=== PATIENT | female | born 1990 | race Caucasian/White ===

== ENCOUNTER 2016-11-17 13:57 | Emergency (ER) | payer MEDICAID ==
[~2016-11-17] VITALS: Ht 172.7 cm; Wt 63.5 kg
--- NOTE | 2016-11-17 14:09 | NUR ---
Pt ambulatory to bed 2a.
--- NOTE | 2016-11-17 14:27 | NUR ---
Pt dc;ed home w/ aci , pt given script for bactrim ds po.
[2016-11-17 14:28] VITALS: BP 114/76
== END 2016-11-17 14:28 | disposition home or self-care (01) ==
LOC: ER 13:57
DX: L03.213 Periorbital cellulitis (principal)
CPT/HCPCS: 99283; A4663

== ENCOUNTER 2016-11-21 12:02 | Emergency (ER) | payer MEDICAID, OTHER ==
[~2016-11-21] VITALS: Ht 170.2 cm; Wt 63.5 kg
[2016-11-21] MEDS ORDERED: VANCOMYCIN IV 1,000 MG in IV DEXTROSE 5% 250 ML IV ONE (12:45)
[2016-11-21] MEDS ORDERED: VANCOMYCIN IV 200 ML ONE (12:56)
--- NOTE | 2016-11-21 13:12 | NUR ---
PT IS IN ROOM #2B. DR MARIO EVALUATED THE PT.
[2016-11-21 14:17] LABS: BASOPHILS # (AUTO) 0.1 K/uL (0.0-8.0); BASOPHILS % (AUTO) 0.9 % (0.0-2.0); CALCIUM 9.1 mg/dL (8.5-10.1); CREATININE 0.8 mg/dL (0.6-1.3); EOSINOPHILS # (AUTO) 0.3 K/uL (0.0-0.7); EOSINOPHILS % (AUTO) 4.4 % (0.0-7.0); HEMATOCRIT 37.6 % (31.2-41.9); HEMOGLOBIN 12.8 g/dL (10.9-14.3); LYMPHOCYTES # (AUTO) 2.7 K/uL (20.0-40.0); LYMPHOCYTES % (AUTO) 48.4 % (20.5-51.5); MEAN CORPUSCULAR HEMOGLOBIN 30.8 uug (24.7-32.8); MEAN CORPUSCULAR HGB CONC 34 g/dL (32.3-35.6); MEAN CORPUSCULAR VOLUME 90.4 fL (75.5-95.3); MONOCYTES # (AUTO) 0.6 K/uL (2.0-10.0); MONOCYTES % (AUTO) 9.7 % (0.0-11.0); NEUTROPHILS # (AUTO) 2.1 K/uL (1.8-8.9); NEUTROPHILS % (AUTO) 36.6 % (38.5-71.5); PLATELET COUNT (AUTO) 290 K/uL (179-408); POTASSIUM 3.9 mmol/L (3.5-5.1); RED BLOOD CELL COUNT(AUTO) 4.16 MIL/uL (3.63-4.92); RED CELL DISTRIBUTION WIDTH 12.6 % (12.3-17.7); WHITE BLOOD COUNT (AUTO) 5.8 K/uL (3.8-11.8)
[2016-11-21 14:23] LABS: ALBUMIN 3.5 g/dL (3.4-5.0); BILIRUBIN,TOTAL 0.3 mg/dL (0.2-1.0)
--- NOTE | 2016-11-21 15:24 | NUR ---
PT WAS EVALUATED BY DR MARIO. PT WAS D/C TO HOME. D/C INSTRUCTIONS GIVEN TO THE PT.
[2016-11-21 15:25] VITALS: BP 129/78
== END 2016-11-21 15:26 | disposition home or self-care (01) ==
LOC: ER 12:13
DX: H00.031 Abscess of right upper eyelid (principal); Z48.00 Encounter for change or removal of nonsurgical wound dressing
CPT/HCPCS: 36415; 84703; 85025; A4663; J3370

== ENCOUNTER 2016-11-23 00:41 | Emergency (ER) | payer MEDICAID, OTHER ==
[~2016-11-23] VITALS: Ht 172.7 cm; Wt 59.9 kg
[2016-11-23] MEDS ORDERED: SULF1TAB48 PO (01:13)
--- NOTE | 2016-11-23 01:29 | NUR ---
Patient discharged to home in stable conditon. Written and verbal after care instructions given. Patient verbalizes understanding of instructions.
[2016-11-23] MEDS ORDERED: NEOMY/BACITRA/POLYMYXIN B OINT UD PACKET TP ONE ×2 (01:30→01:31)
[2016-11-23 01:33] VITALS: BP 110/60
== END 2016-11-23 01:29 | disposition home or self-care (01) ==
LOC: ER 00:44
DX: L03.213 Periorbital cellulitis (principal)
CPT/HCPCS: A4663

== ENCOUNTER 2017-01-26 15:39 | Emergency (ER) | payer OTHER ==
[~2017-01-26] VITALS: Ht 170.2 cm; Wt 62.6 kg
[~2017-01-26 15:39] MED LIST: SULF1TAB48 PO
--- NOTE | 2017-01-26 16:08 | NUR ---
PT IS IN ROOM #2A. DR MARIO EVALUATED THE PT.
[2017-01-26 16:56] LABS: BASOPHILS % (AUTO) 0.8 % (0.0-2.0); EOSINOPHILS # (AUTO) 0.3 K/uL (0.0-0.7); EOSINOPHILS % (AUTO) 4.8 % (0.0-7.0); HEMATOCRIT 34.2 % (37-47); HEMOGLOBIN 11.4 G/DL (12.0-16.0); LYMPHOCYTES # (AUTO) 2.4 K/UL (0.8-4.8); LYMPHOCYTES % (AUTO) 45.4 % (20.5-51.5); MEAN CORPUSCULAR HEMOGLOBIN 30.3 UUG (27.0-31.0); MEAN CORPUSCULAR HGB CONC 33 g/dL (32.0-37.0); MONOCYTES # (AUTO) 0.5 K/UL (0.1-1.30); MONOCYTES % (AUTO) 9.1 % (0.0-11.0); NEUTROPHILS # (AUTO) 2.1 K/UL (1.8-8.9); NEUTROPHILS % (AUTO) 39.9 % (38.5-71.5); PLATELET COUNT (AUTO) 275 K/UL (150-450); RED BLOOD CELL COUNT(AUTO) 3.75 MIL/UL (4.2-5.4); WHITE BLOOD COUNT (AUTO) 5.3 K/UL (4.0-11.2)
[2017-01-26 17:02] LABS: CREATININE 0.7 mg/dL (0.6-1.3); POTASSIUM 4.1 mmol/L (3.5-5.1)
[2017-01-26 17:14] LABS: BILIRUBIN,DIRECT 0.1 mg/dL (0.0-0.2); BILIRUBIN,TOTAL 0.3 mg/dL (0.2-1.0); TOTAL PROTEIN, SERUM 6.3 g/dL (6.4-8.2)
--- NOTE | 2017-01-26 17:53 | NUR ---
PT WAS D/C TO HOME AFTER DR MARIO RE-EVALUATION. D/C INSTRUCTIONS GIVEN TO THE PT.
[2017-01-26 17:54] VITALS: BP 128/71
== END 2017-01-26 17:55 | disposition home or self-care (01) ==
LOC: ER 15:49
DX: R60.9 Edema, unspecified (principal)
CPT/HCPCS: 36415; 71010; 80048; 80076; 83880; 84703; 85025; 93005; 99285; A4663

== ENCOUNTER 2018-05-30 08:56 | Emergency (ER) | payer OTHER ==
[~2018-05-30] VITALS: Ht 170.2 cm; Wt 63.5 kg
--- NOTE | 2018-05-30 09:32 | NUR ---
Pt. Patient discharged to home in stable conditon. Written and verbal after care instructions given. Patient verbalizes understanding of instructions.
== END 2018-05-30 09:30 | disposition home or self-care (01) ==
LOC: ER 08:56
DX: L03.115 Cellulitis of right lower limb (principal); F19.10 Other psychoactive substance abuse, uncomplicated
CPT/HCPCS: A4663

== ENCOUNTER 2018-10-01 18:00 | Emergency (ER) | payer OTHER ==
[~2018-10-01] VITALS: Ht 175.3 cm; Wt 56.7 kg
--- NOTE | 2018-10-01 18:07 | NUR ---
CALLED IN FOR TRIAGE, NOT IN WAITING ROOM X 2.
--- NOTE | 2018-10-01 18:55 | NUR ---
Patient discharged to home in stable conditon. Written and verbal after care instructions given. Patient verbalizes understanding of instructions.
== END 2018-10-01 18:33 | disposition home or self-care (01) ==
LOC: ER 18:00
DX: K08.89 Other specified disorders of teeth and supporting structures (principal)
CPT/HCPCS: A4663

== ENCOUNTER 2019-05-07 20:19 | Emergency (ER) | payer OTHER ==
[~2019-05-07] VITALS: Ht 172.7 cm; Wt 74.8 kg
[2019-05-07 20:57] VITALS: BP 99/67
[2019-05-07] MEDS ORDERED: IBUPROFEN 600 MG TABLET ONE (20:57)
[2019-05-07] MEDS ORDERED: IBUPROFEN 600 MG TABLET PO ONE (21:00)
== END 2019-05-07 20:56 | disposition home or self-care (01) ==
LOC: ER 20:19
DX: B34.9 Viral infection, unspecified (principal)
CPT/HCPCS: A4663

== ENCOUNTER 2019-08-02 21:41 | Emergency (ER) | END 2019-08-02 23:07 | disposition home or self-care (01) | DX: R91.8 Other nonspecific abnormal finding of lung field (principal); J20.9 Acute bronchitis, unspecified; M79.10 Myalgia, unspecified site ==

== ENCOUNTER 2025-04-11 20:47 | Emergency (ER) | payer MEDICAID ==
[~2025-04-11] VITALS: Ht 172.7 cm; Wt 77.1 kg
[2025-04-11 20:55] VITALS: BP 125/72
[2025-04-11] MEDS ORDERED: AMOX-430 PO (22:27)
[2025-04-11] MEDS ORDERED: AMOXICILLIN-CLAVUL 875-125MG TABLET ONE (22:32)
[2025-04-11] MEDS: AMOXICILLIN-CLAVUL 875-125MG TABLET PO ONE (22:33)
[2025-04-11 22:39] VITALS: BP 126/70; O2SAT 100
== END 2025-04-11 22:39 | disposition home or self-care (01) ==
LOC: ER 21:01
DX: S01.511A Laceration without foreign body of lip, initial encounter (principal); W54.0XXA Bitten by dog, initial encounter; Y93.89 Activity, other specified; Y92.89 Other specified places as the place of occurrence of the external cause; Y99.8 Other external cause status
CPT/HCPCS: A4606; A4663

== ENCOUNTER 2025-04-18 05:55 | Emergency (ER) | payer MEDICAID ==
[~2025-04-18] VITALS: Ht 172.7 cm; Wt 77.1 kg
[~2025-04-18 05:55] MED LIST changes: +AMOX-430 PO; -SULF1TAB48 PO
[2025-04-18 05:59] VITALS: BP 103/71
[2025-04-18 06:31] VITALS: BP 111/69; TEMP 98; O2SAT 98
== END 2025-04-18 06:34 | disposition home or self-care (01) ==
LOC: ER 06:00
DX: S01.511D Laceration without foreign body of lip, subsequent encounter (principal); F19.10 Other psychoactive substance abuse, uncomplicated; Z48.02 Encounter for removal of sutures; Z87.2 Personal history of diseases of the skin and subcutaneous tissue; W54.0XXD Bitten by dog, subsequent encounter
CPT/HCPCS: A4606; A4663